=== PATIENT | female | born 1995 | race African-American/Black ===

== ENCOUNTER 2021-03-08 00:31 | Emergency (ER) | payer OTHER ==
[2021-03-08 01:16] VITALS: BP 125/82; PULSE 82; TEMP 98.6; BMI 23.8
== END 2021-03-08 04:32 | disposition home or self-care (01) ==
LOC: JER 00:31
DX: R68.89 Other general symptoms and signs (principal); V49.40XA Driver injured in collision with unspecified motor vehicles in traffic accident, initial encounter
CPT/HCPCS: 99283-25